=== PATIENT | male | born 1970 | race Caucasian/White ===

== ENCOUNTER 2017-09-21 11:11 | Emergency (ER) | payer OTHER | END 2017-09-21 13:27 | disposition home or self-care (01) | LOC: ER 11:11 | DX: M79.661 Pain in right lower leg (principal); M79.89 Other specified soft tissue disorders; K21.9 Gastro-esophageal reflux disease without esophagitis; I10 Essential (primary) hypertension; E78.00 Pure hypercholesterolemia, unspecified | CPT/HCPCS: 93971; 99284 ==

== ENCOUNTER 2018-03-10 07:51 | Emergency (ER) | payer OTHER ==
[~2018-03-10] VITALS: Ht 182.9 cm; Wt 93.0 kg
[2018-03-10] MEDS ORDERED: METOCLOPRAMIDE HCL 10 MG/2 ML VIAL. IV ONE (08:15)
[2018-03-10] MEDS ORDERED: MORPHINE SULFATE 10 MG/ML VIAL. IV ONE (08:15)
[2018-03-10] MEDS ORDERED: IV NORMAL SALINE 1000ML BAG 1,000 ML IV ONE (08:15)
[2018-03-10] MEDS ORDERED: PROCHLORPERAZINE 10 MG/2 ML VIAL. IV ONE (08:15)
[2018-03-10 08:36] LABS: BASO % 1 % (0-3); EOS # 0.1 x10^3/uL (0.0-0.7); EOS % 1 % (0-3); HEMATOCRIT 44.3 % (39.0-53.0); HEMOGLOBIN 15.2 g/dL (13.0-17.5); LYMPH # 1.3 x10^3/uL (1.0-4.8); LYMPH % 22 % (24-48); MEAN CORPUSCULAR HEMOGLOBIN 32 pg (25-35); MEAN CORPUSCULAR HGB CONC 34 g/dL (31-37); MEAN CORPUSCULAR VOLUME 94 fL (79-100); MONO # 0.4 x10^3/uL (0.0-1.1); MONO % 7 % (0-9); NEUT # 4.3 x10^3uL (1.8-7.7); NEUT % 70 % (31-73); PLATELET COUNT 230 x10^3/uL (140-400); RED CELL DISTRIBUTION WIDTH 12.6 % (11.5-14.5); WHITE BLOOD COUNT 6.2 x10^3/uL (4.0-11.0)
[2018-03-10 08:44] LABS: CALCIUM 8.9 mg/dL (8.5-10.1); CREATININE 0.9 mg/dL (0.7-1.3); GFR 90.4; POTASSIUM 4.2 mmol/L (3.5-5.1)
[2018-03-10 08:48] LABS: C-REACTIVE PROTEIN 2.2 mg/L (0-3.3)
--- NOTE | 2018-03-10 09:14 | RAD ---
CT head without intravenous contrast History: Worst headache of life. Comparison: None. Technique: Axial images are obtained of the head from the skull base through the vertex without IV contrast. Exposure: One or more of the following individualized dose reduction techniques were utilized for this examination: 1. Automated exposure control 2. Adjustment of the mA and/or kV according to patient size 3. Use of iterative reconstruction technique Findings: The ventricles are appropriate in size, shape, and location for the patient's age. No obvious intracranial mass, mass-effect, midline shift, hemorrhage or obvious acute infarction is identified. Basilar cisterns are patent. Bone windows demonstrate no acute calvarial abnormality. The visualized paranasal sinuses appear clear. Impression: No acute intracranial process. Please note that CT can be relatively insensitive to acute ischemic infarction for up to 24 hours after symptom onset. Electronically signed by: Valeriy Lopes MD (03/10/2018 9:11 AM) [id number]
[2018-03-10] MEDS ORDERED: IOHEXOL 300 MG/ML 100ML VIAL. IV ONE (09:15)
[2018-03-10] MEDS ORDERED: CONTRAST GIVEN. MC PRN (09:30)
--- NOTE | 2018-03-10 10:48 | RAD ---
CTA of the head and neck with contrast, 03/10/2018: HISTORY: Headache following adjustment, Photophobia Multidetector CT imaging was performed following an IV bolus injection of iodinated contrast material. Multiplanar reconstructions were produced including MIP images and 3-D volume rendered reconstructions. The origins of a cervicocephalic arteries from the aortic arch are widely patent. The common carotid arteries are widely patent. There is minimal calcific plaquing at the left carotid bifurcation. There is no significant stenosis at either carotid bifurcation. The internal carotid arteries are widely patent bilaterally up through the level the [place]. The anterior cerebral and middle cerebral arteries and their major branches are unremarkable. No aneurysm is evident. Both vertebral arteries in the neck are widely patent with slight dominance of the left vertebral artery. No vertebral dissection is evident. The basilar artery is tortuous but patent. There is a prominent posterior communicating artery on the left with the majority of the left posterior cerebral circulation arising from the posterior communicating artery, which is a normal variant. The posterior cerebral arteries are otherwise unremarkable. Incidental note is made of moderate hypertrophic degenerative change in the cervical spine. IMPRESSION: 1. Minimal calcific plaquing of the left carotid bifurcation without significant stenosis. 2. The vertebral and carotid arteries in the neck are widely patent. 3. The major intracranial arteries show no significant abnormality. PQRS Compliance Statement: One or more of the following individualized dose reduction techniques were utilized for this examination: 1. Automated exposure control 2. Adjustment of the mA and/or kV according to patient size 3. Use of iterative reconstruction technique Electronically signed by: Ashok Middleton MD (03/10/2018 10:45 AM) [facility]
[2018-03-10 11:00] VITALS: BP 128/84
[2018-03-10] MEDS ORDERED: CYCL10TA2 PO (11:18)
[2018-03-10] MEDS ORDERED: HYDR-971 PO (11:18)
[2018-03-10] MEDS ORDERED: METH4TAB2 PO (11:18)
--- NOTE | 2018-03-10 11:48 | PHYS DOC ---
Past Medical History Past Medical History: GERD, High Cholesterol, Hypertension Past Surgical History: Other Additional Past Surgical Histo: back x6 with nerve stimulator; R shoulder x3 Additional Information: chews tobacco Alcohol Use: Occasionally Drug Use: None Adult General Chief Complaint Chief Complaint: HEADACHE HPI HPI Patient is a 47 year old presents with intermittent, sharp, lancinating right a little temporal headache starting 2 days prior to ED arrival following chiropractic adjustment. Pain is moderate to severe and is associated with nausea, and light sensitivity. Pain is made worse with palpation over right lateral occipital region and any movement involving neck muscles. No fever, chills, sweats, rash. No extremity weakness or loss of sensation. No other acute symptoms or complaints. Patient has history of chronic back pain and has neuro-spinal stimulator. Denies history of chronic headaches or migraines.[] Review of Systems Review of Systems Review symptoms as per history of present illness. All other systems were reviewed and found to be within normal limits, except as documented in this note. Current Medications Current Medications Current Medications Medications (Trade) Dose Ordered Sig/Louisa Start Time Stop Time Status Last Admin Dose Admin Info (CONTRAST GIVEN -- Rx MONITORING) 1 each PRN DAILY PRN 03/10/18 09:30 03/12/18 09:29 Iohexol (Omnipaque 300 Mg/ml) 75 ml 1X ONCE 03/10/18 09:15 03/10/18 09:16 DC 03/10/18 09:24 75 ML Metoclopramide HCl (Reglan Vial) 10 mg 1X ONCE 03/10/18 08:15 03/10/18 08:16 DC 03/10/18 08:34 10 MG Morphine Sulfate (Morphine Sulfate) 5 mg 1X ONCE 03/10/18 08:15 03/10/18 08:16 DC 03/10/18 08:37 5 MG Prochlorperazine Edisylate (Compazine) 10 mg 1X ONCE 03/10/18 08:15 03/10/18 08:16 DC 03/10/18 08:40 10 MG Sodium Chloride 1,000 ml @ 1,000 mls/hr 1X ONCE 03/10/18 08:15 03/10/18 09:14 DC 03/10/18 08:32 1,000 MLS/HR Allergies Allergies Allergies Coded Allergies Type Severity Reaction Last Updated Verified No Known Drug Allergies 03/10/18 No Physical Exam Physical Exam Constitutional: Well developed, well nourished, no acute distress, non-toxic appearance. [] HENT: Normocephalic, right occipital scalp, tenderness reproducing complaints, bilateral external ears normal, oropharynx moist. [] Eyes: PERRLA, EOMI, conjunctiva normal, no discharge. [] Neck: Normal range of motion, no tenderness, supple, no rigidity. [] Cardiovascular:Heart rate regular rhythm, no murmur [] Lungs & Thorax: Bilateral breath sounds clear to auscultation [] Abdomen: Bowel sounds normal, soft, no tenderness. [] Skin: Warm, dry, no erythema, no rash. [] Back: No tenderness. [] Extremities: No tenderness,no edema. [] Neurologic: Alert and oriented X 3, normal motor function, normal sensory function, no focal deficits noted. [] Psychologic: Affect normal, judgement normal, mood normal. [] Current Patient Data Vital Signs Vital Signs Date Time Temp Pulse Resp B/P (MAP) Pulse Ox O2 Delivery O2 Flow Rate FiO2 03/10/18 11:00 54 18 95 03/10/18 08:37 Room Air 03/10/18 08:00 97.6 150/93 (112) 97.6 Lab Values Laboratory Tests Test 03/10/18 08:25 White Blood Count 6.2 x10^3/uL (4.0-11.0) Red Blood Count 4.70 x10^6/uL (4.30-5.70) Hemoglobin 15.2 g/dL (13.0-17.5) Hematocrit 44.3 % (39.0-53.0) Mean Corpuscular Volume 94 fL (79-100) Mean Corpuscular Hemoglobin 32 pg (25-35) Mean Corpuscular Hemoglobin Concent 34 g/dL (31-37) Red Cell Distribution Width 12.6 % (11.5-14.5) Platelet Count 230 x10^3/uL (140-400) Neutrophils (%) (Auto) 70 % (31-73) Lymphocytes (%) (Auto) 22 % (24-48) L Monocytes (%) (Auto) 7 % (0-9) Eosinophils (%) (Auto) 1 % (0-3) Basophils (%) (Auto) 1 % (0-3) Neutrophils # (Auto) 4.3 x10^3uL (1.8-7.7) Lymphocytes # (Auto) 1.3 x10^3/uL (1.0-4.8) Monocytes # (Auto) 0.4 x10^3/uL (0.0-1.1) Eosinophils # (Auto) 0.1 x10^3/uL (0.0-0.7) Basophils # (Auto) 0.0 x10^3/uL (0.0-0.2) Sodium Level 140 mmol/L (136-145) Potassium Level 4.2 mmol/L (3.5-5.1) Chloride Level 104 mmol/L (98-107) Carbon Dioxide Level 27 mmol/L (21-32) Anion Gap 9 (6-14) Blood Urea Nitrogen 13 mg/dL (8-26) Creatinine 0.9 mg/dL (0.7-1.3) Estimated GFR (Cockcroft-Gault) 90.4 Glucose Level 113 mg/dL (70-99) H Calcium Level 8.9 mg/dL (8.5-10.1) C-Reactive Protein, Quantitative 2.2 mg/L (0-3.3) Laboratory Tests 03/10/18 08:25 Laboratory Tests 03/10/18 08:25 EKG EKG [] Radiology/Procedures Radiology/Procedures [CT head/CTA head/neck: No acute findings per radiology report] Course & Med Decision Making Course & Med Decision Making Pertinent Labs and Imaging studies reviewed. (See chart for details) [Since most consistent with greater simple neuralgia. CT/CT angiogram negative. Recommend supportive care and pain management referral for evaluation of occipital nerve block.] Dragon Disclaimer Dragon Disclaimer This electronic medical record was generated, in whole or in part, using a voice recognition dictation system. Departure Departure Impression: Primary Impression: Occipital neuralgia of right side Disposition: HOME, SELF-CARE Condition: GOOD Patient Instructions: Headache, FAQs Additional Instructions: Please take newly prescribed medications as directed. Contact your healthcare insurance carrier to determine if a prior authorization is required for referral to a painter maintenance for a greater occipital nerve block with your primary care physician to coordinate further management. Scripts Methylprednisolone (MEDROL) 4 Mg Tab.ds.pk 1 PKG PO UD, #1 PKG Prov: TONJA KHALIL DO 03/10/18 Cyclobenzaprine Hcl (CYCLOBENZAPRINE HCL) 10 Mg Tablet 1 TAB PO TID, #30 TAB Prov: TONJA KHALIL DO 03/10/18 Hydrocodone/Apap 5-325 (NORCO 5-325 TABLET) 1 Each Tablet 1 TAB PO TID for pain, #20 TAB Prov: TONJA KHALIL DO 03/10/18 TONJA KHALIL DO Mar 10, 2018 11:48
== END 2018-03-10 11:48 | disposition home or self-care (01) ==
LOC: ER 07:51
DX: M54.81 Occipital neuralgia (principal); E78.00 Pure hypercholesterolemia, unspecified; I10 Essential (primary) hypertension; K21.9 Gastro-esophageal reflux disease without esophagitis; G89.29 Other chronic pain; F17.220 Nicotine dependence, chewing tobacco, uncomplicated
CPT/HCPCS: 36415; 70450; 70496; 70498; 80048; 85025; 86140; 96374; 96375; 99285; J0780; J2270; J2765; J7030; Q9967